=== PATIENT | male | born 1950 | race Caucasian/White ===

== ENCOUNTER 2016-08-20 05:53 | Day surgery (SDC) | payer MEDICARE, OTHER ==
[~2016-08-20 05:53] MED LIST: AMARYL1 M1 PO; B COMPLEX1 TAB PO; COZAAR25 M1 PO; FLOMAX0.4 M1 PO; GLUCOPHAGE500 MG PO; LASIX40 M1 PO; MILK THISTLE500 MG PO; MULTIVITAMIN1 TAB PO; NEURONTIN300 M1 PO; SPIRONOLACTONE100 M1 PO; ZINC50 M PO; ZOCOR20 M1 PO
[2016-08-20 06:43] LABS: BASO % 0.5 % (0-2); EOS % 2.7 % (0-7); EOSINOPHIL ABSOLUTE COUNT 0.2 tho/cmm (0.0-0.7); HCT-HEMATOCRIT 37.1 % (36.0-53.5); HGB-HEMOGLOBIN 12.8 gm/dl (13.5-17.0); LYMPH % 20.7 % (20-45); LYMPH ABSOLUTE COUNT 1.2 tho/cmm (0.8-4.5); MCH (MEAN CORPUSCULAR HGB) 30.1 pg (28.0-32.0); MCHC MEAN CORPUSCULAR HGB CONC 34.5 % (32.0-36.0); MCV (MEAN CELL VOLUME) 87.3 fl (82.0-96.0); MEAN PLATELET VOLUME 9.5 cmc (9.4-12.4); MONOCYTE ABSOLUTE COUNT 0.7 tho/cmm (0.0-1.2); NEUTROPHIL ABSOLUTE COUNT 3.8 tho/cmm (1.6-8.0); NEUTROPHIL-AUTOMATED 3.8 tho/cmm (1.6-8.0); NEUTROPHILS % 64.1 % (40-80); PLATELET COUNT 110 tho/cmm (150-450); RED BLOOD COUNT 4.25 mil/cmm (4.40-5.70); RED CELL DISTRIBUTION WIDTH 14.7 % (12.4-16.4); WHITE BLOOD COUNT 5.9 tho/cmm (4.0-10.0)
[2016-08-20 06:51] LABS: INR 1.4 INR (0.9-1.1); PROTHROMBIN TIME 16.6 SECONDS (9.0-13.6)
[2016-08-20 06:57] LABS: ANION GAP 13 mmol/L (0-20); BLOOD UREA NITROGEN 18 mg/dl (6-24); CALCIUM 8.3 mg/dl (8.5-10.5); CARBON DIOXIDE-VENOUS 25 mmol/L (22-32); CHLORIDE 104 mmol/l (96-110); CREATININE 1.11 mg/dl (0.60-1.30); GLUCOSE 151 mg/dL (70-110); SODIUM 138 mmol/L (135-145); eGFR VALUE FOR BLACK 79 mL/Min
[2016-08-20 12:30] LABS: BODY FLUID APPEARANCE HAZY (CLEAR); BODY FLUID COLOR YELLOW (COLORLESS); BODY FLUID VOLUME 1100 ml
[2016-08-20 12:31] LABS: BODY FLUID RBC COUNT 2000 cmm (0); BODY FLUID WBC COUNT 521 cmm
[2016-08-20 13:09] LABS: BODY FLUID LYMPHOCYTES 33 %; BODY FLUID MACROPHAGES 49 %; BODY FLUID MESOTHELIAL CELLS 5 %; BODY FLUID NEUTROPHILS 13 %
[2016-08-23 08:44] LABS: BODY FLUID TYPE ASCITIC FLUID; FLUID ALBUMIN 0.8 g/dl
== END 2016-08-20 09:39 ==
LOC: SHSB 05:53
PROVIDERS: Internal Medicine Gastroenterology; Radiology Diagnostic Radiology
PROC: 0W9G3ZZ Drainage of Peritoneal Cavity, Percutaneous Approach (ICD-10-PCS; principal; 2016-08-20)
DX: R18.8 Other ascites (principal); E11.9 Type 2 diabetes mellitus without complications; I10 Essential (primary) hypertension; G47.30 Sleep apnea, unspecified; Z90.49 Acquired absence of other specified parts of digestive tract; Z98.890 Other specified postprocedural states; Z86.010 Personal history of colon polyps; Z88.8 Allergy status to other drugs, medicaments and biological substances; Z87.891 Personal history of nicotine dependence
CPT/HCPCS: J7030; P9047